=== PATIENT | female | born 1995 ===

== ENCOUNTER 2021-10-25 01:20 | Emergency (ER) | payer OTHER ==
[~2021-10-25] VITALS: Ht 154.9 cm; Wt 81.7 kg
[2021-10-25 01:59] LABS: BASOPHILS ABSOLUTE AUTO 0.06 K/mm3 (0.00-0.23); BASOPHILS PERCENT AUTO 0 % (0-2); EOSINOPHILS ABSOLUTE AUTO 0.13 K/mm3 (0.00-0.68); EOSINOPHILS PERCENT AUTO 1 % (0-6); Hematocrit 39.3 % (33.0-51.0); Hemoglobin 13.2 g/dL (11.5-16.0); IMMATURE GRAN PERCENT AUTO 1 % (0-1); LYMPHOCYTES ABSOLUTE AUTO 4.06 K/mm3 (0.84-5.20); LYMPHOCYTES PERCENT AUTO 27 % (21-46); MONOCYTES ABSOLUTE AUTO 0.45 K/mm3 (0.16-1.47); MONOCYTES PERCENT AUTO 3 % (4-13); Mean Corpuscular HGB Conc 33.6 g/dL (31.5-36.5); Mean Corpuscular Volume 89 fL (80-100); Mean Platelet Volume 9.7 fL (9.1-12.4); NEUTROPHILS PERCENT AUTO 67 % (41-73); Platelet Count 397 K/mm3 (150-400); RDW Coefficient Variation 11.9 % (11.7-14.2); RDW Standard Deviation 38.6 fL (35.1-46.3)
[2021-10-25 02:03] LABS: Ethanol (Alcohol), Blood, Med 17 mg/dL
[2021-10-25 02:05] LABS: International Normalized Ratio 1.04; Prothrombin Time Results 10.9 Sec (9.7-11.5)
[2021-10-25 03:47] LABS: Anion Gap 15 mmol/L (6-16); Blood Urea Nitrogen 8 mg/dL (8-24); Bun/Creatinine Ratio 20.3 (12.0-20.0); CO2, Blood 22 mmol/L (21-32); Calcium, Blood 8.9 mg/dL (8.5-10.1); Chloride, Blood 104 mmol/L (98-108); Glomerular Filtration Rate 139 (60-); Glucose, Blood 157 mg/dL (70-99); Potassium, Blood 2.8 mmol/L (3.5-5.5); Sodium, Blood 141 mmol/L (136-145)
[2021-10-25 04:38] LABS: Bun/Creatinine Ratio 19.7 (12.0-20.0); Calcium, Blood 8.9 mg/dL (8.5-10.1); Creatinine, Blood 0.41 mg/dL (0.40-1.00); Potassium, Blood 2.7 mmol/L (3.5-5.5)
[2021-10-25 05:02] LABS: U Amphetamine Screen Not Detected; U Barbituate Screen Not Detected; U Benzodiazapine Screen Not Detected; U Buprenorphine Screen Not Detected; U Cannabinoids Screen DETECTED; U Cocaine Screen Not Detected; U Methadone Screen Not Detected; U Methamphetamine Screen Not Detected; U Opiates Screen DETECTED; U Oxycodone Screen Not Detected; U Phencyclidine Screen Not Detected; U Propoxyphene Screen Not Detected
[2021-10-25 05:35] LABS: Influenza A, PCR NEGATIVE (NEGATIVE); Influenza B, PCR NEGATIVE (NEGATIVE); Resp Syncytial Virus, PCR NEGATIVE (NEGATIVE); SARS-Cov-2 (COVID-19) PCR, MMC NEGATIVE (NEGATIVE)
== END 2021-10-25 05:30 | disposition short-term general hospital (02) ==
LOC: ER 01:20
PROVIDERS: Student in an Organized Health Care Education/Training Program
DX: S32.491A Other specified fracture of right acetabulum, initial encounter for closed fracture (principal); V48.1XXA Car passenger injured in noncollision transport accident in nontraffic accident, initial encounter; M79.604 Pain in right leg; E87.6 Hypokalemia; D72.829 Elevated white blood cell count, unspecified; Z88.0 Allergy status to penicillin
CPT/HCPCS: 0241U; 51702; 70450; 71260; 72125; 73502; 73562-RT; 73610; 74177; 80048; 85025; 85610; 85730; G0480; J1170; J2405; J3010; Q9967